=== PATIENT | male | born 1930 | race Caucasian/White ===

== ENCOUNTER 2021-06-15 23:39 | Emergency (ER) | payer OTHER, SELFPAY ==
--- OUTSIDE RECORDS SUMMARY | 2021-06-15 23:42 | XMS REPORT | Continuity of Care Document ---
:[address] [facility] t Address [address] [place] [address] Care Team Providers Name Role Phone Cristine SAMUEL, Missy Primary Care Physician CRISTINE Attending Clinician Unavailable Reyes Lucia Attending Clinician Unavailable [id number] Attending Clinician Unavailable Greg DUBOIS, S Attending Clinician LEO Attending Clinician Unavailable LEO Admitting Clinician Unavailable Reyes Lucia Admitting Clinician Unavailable [id number] Admitting Clinician Unavailable Physician, Primary or Family Admitting Clinician Unavailabl e Payers Payer Name Policy Type Policy Number Effective Date Expiration Date S ourzoraida AETM AETM [id number] Problems Condition Condition Condition Status Onset Resolution Last Treating Co mments Source Name Details Category Date Date Treatment Clinician Date NARVAEZ NARVAEZ Disease Active Univers (dyspnea (dyspnea 5-22 ity of on on 00:00: [place] exertion) exertion) [facility] Fever in Fever in Disease Active Unive rs adult adult 5-20 ity of 00:00: [address] Urinary Urinary Disease Active Univers urgency urgency 3-02 ity of 00:00: [address] Acquired Acquired Disease Active Unive rs hypothyroi hypothyroi 6-30 it y of dism dism 00:00: [address] Essential Essential Disease Active Uni vers hypertensi hypertensi 4-26 it y of on on 00:00: [place] 00 Medical Branch Benign Benign Disease Active Univers prostatic prostatic ity of hyperpl[place]plasi [place] [facility] Depression Depression Disease Active U nivers ity of [facility] Coronary Coronary Disease Active Unive rs artery artery ity of disease disease [facility] Atrial Atrial Disease Active Univers fibrillati fibrillati it y of on on [facility] Hyperchole Hyperchole Disease Active U nivers sterolemia sterolemia it y of [facility] Allergies, Adverse Reactions, Alerts Allergy Allergy Status Severity Reaction(s) Onset Inactive Treating Comm ents Source Name Type Date Date Clinician NKA Allergy Active ENCCLR 6-10 11:54: 13 NKA Allergy Active ENCCLR 6-10 11:54: 13 NKA Allergy Active ENCCLR 6-10 11:54: 13 NKA Allergy Active ENCCLR 6-10 11:54: 13 Social History Social Habit Start Date Stop Date Quantity Comments Source Exposure to Not sure [facility]-CoV-2 [facility] (event) [place] Alcohol intake 2021-04-04 2021-04-04 Current [facility] 00:00:00 00:00:00 non-drinker of [facility] alcohol [place] (finding) Tobacco use and 2017-06-30 2017-06-30 Never used Universit y of exposure 00:00:00 00:00:00 [facility] Sex Ass[birth year] Universit y of 00:00:00 00:00:00 [facility] Smoking Status Start Date Stop Date Source Never smoker [facility] Medications Ordered Filled Start Stop Current Ordering Indication Dosage Frequency Signature Comments Components Source Medication Medication Date Date Medication? Clinician (SIG) Name Name tamsulosin Yes .4mg Take 0.4 Uni vers 0.4 mg 24 2-09 mg by ity of hr capsule 08:58: mouth [place] 40 daily. Medical Branch metoprolol Yes 50mg Take 50 mg U nivers succinate 2-09 by mouth ity of XL 50 mg 24 08:58[place] tablet 40 [facility] mirabegron Yes 25mg Take 25 mg U nivers (MYRBETRIQ) 2-09 by mouth ity of 25 mg 08:58: daily. [place] tablet 40 [facility] SERTraline 2021-0 Yes 50mg Take 50 mg U nivers (ZOLOFT) 50 2-09 by mouth ity of mg tablet 08:58: daily. [address] tamsulosin 2020-0 Yes .4mg Take 0.4 Uni vers 0.4 mg 24 2-09 mg by ity of hr capsule 08:58: mouth [place] 40 daily. [facility] Branch metoprolol 2020-0 Yes 50mg Take 50 mg U nivers succinate 2-09 by mouth ity of XL 50 mg 24 08:58[place] 40 [facility] mirabegron 0 Yes 25mg Take 25 mg U nivers (MYRBETRIQ) 2-09 by mouth ity of 25 mg 08:58: daily. [address] SERTraline 0 Yes 50mg Take 50 mg U nivers (ZOLOFT) 50 2-09 by mouth ity of mg tablet 08:58: daily. [address] tamsulosin 2020-0 Yes .4mg Take 0.4 Uni vers 0.4 mg 24 2-09 mg by ity of hr capsule 08:58: mouth [place] 40 daily. [facility] metoprolol 0 Yes 50mg Take 50 mg U nivers succinate 2-09 by mouth ity of XL 50 mg 24 08:58: [place]. [place] tablet 40 [facility] mirabegron 0 Yes 25mg Take 25 mg U nivers (MYRBETRIQ) 2-09 by mouth ity of 25 mg 08:58: daily. [address] SERTraline 0 Yes 50mg Take 50 mg U nivers (ZOLOFT) 50 2-09 by mouth ity of mg tablet 08:58: daily. [address] LEVOTHYROXI 2020-0 Yes [id number] TAKE 1 Univers [place] 88 mcg 7-27 TABLET BY ity o f tablet 00:00: MOUTH [place] 00 EVERY DAY Medical IN THE [place] MORNING LEVOTHYROXI 2020-0 Yes [id number] TAKE 1 Univers [place] 88 mcg 7-27 TABLET BY ity o f tablet 00:00: MOUTH [place] 00 EVERY DAY Medical IN THE [place] MORNING LEVOTHYROXI 2020-0 Yes [id number] TAKE 1 Univers NE 88 mcg 7-27 TABLET BY ity o f tablet 00:00: MOUTH [place] 00 EVERY DAY Medical IN THE Branch MORNING MULTIVITAMI 2020-0 Yes Take by Un pham N ORAL 5-23 mouth. ity of 14:45: [place] 52 Medical Branch MULTIVITAMI 2020-0 Yes Take by Un pham N ORAL 5-23 mouth. ity of 14:45: [place] 52 Medical Branch MULTIVITAMI 2020-0 Yes Take by Un pham N ORAL 5-23 mouth. ity of 14:45: [place] 52 Medical Branch OXYBUTYNIN 2020-0 Yes [id number] TAKE 4 U nivers CHLORIDE 5 5-20 TABLETS BY ity of mg tablet 00:00: MOUTH [place] 00 TWICE A Medical DAY FOR Branch URINARY URGENCY OXYBUTYNIN 2020-0 Yes [id number] TAKE 4 U nivers CHLORIDE 5 5-20 TABLETS BY ity of mg tablet 00:00: MOUTH [place] 00 TWICE A Medical DAY FOR Branch URINARY URGENCY OXYBUTYNIN 2020-0 Yes [id number] TAKE 4 U nivers CHLORIDE 5 5-20 TABLETS BY ity of mg tablet 00:00: MOUTH [place] 00 TWICE A Medical DAY FOR Branch URINARY URGENCY losartan 2020-0 Yes [id number] 100mg Take 1 Un pham 100 mg 5-06 tablet by ity of tablet 00:00: mouth [place] 00 daily. Medical Branch losartan 2020-0 Yes [id number] 100mg Take 1 Un pham 100 mg 5-06 tablet by ity of tablet 00:00: mouth [place] 00 daily. Medical Branch losartan 2020-0 Yes [id number] 100mg Take 1 Un pham 100 mg 5-06 tablet by ity of tablet 00:00: mouth [place] 00 daily. Medical Branch hydroCHLORO 2020-0 Yes [id number] 12.5mg Take 1 Univers thiazide 4-30 tablet by ity of 12.5 mg 00:00: mouth [place] tablet 00 daily. Medical Branch hydroCHLORO 2020-0 Yes [id number] 12.5mg Take 1 Univers thiazide 4-30 tablet by ity of 12.5 mg 00:00: mouth [place] tablet 00 daily. Medical Branch hydroCHLORO 2020-0 Yes [id number] 12.5mg Take 1 Univers thiazide 4-30 tablet by ity of 12.5 mg 00:00: mouth [place] tablet 00 daily. Medical Branch AMLODIPINE 2020-0 Yes [id number] TAKE 1 U nivers 10 mg 2-12 TABLET BY ity of tablet 00:00: MOUTH [place] 00 EVERY DAY Medical Branch ATORVASTATI 2020-0 Yes [id number] TAKE 1 Univers N 10 mg 2-12 TABLET BY ity of tablet 00:00: MOUTH [place] 00 EVERYDAY Medical AT BEDTIME Branch AMLODIPINE 2020-0 Yes [id number] TAKE 1 U nivers 10 mg 2-12 TABLET BY ity of tablet 00:00: MOUTH [place] 00 EVERY DAY Medical Branch ATORVASTATI 2020-0 Yes [id number] TAKE 1 Univers N 10 mg 2-12 TABLET BY ity of tablet 00:00: MOUTH [place] 00 EVERYDAY Medical AT BEDTIME Branch AMLODIPINE 2019-0 Yes [id number] TAKE 1 U nivers 10 mg 2-12 TABLET BY ity of tablet 00:00: MOUTH [place] 00 EVERY DAY Medical Branch ATORVASTATI 2019-0 Yes [id number] TAKE 1 Univers N 10 mg 2-12 TABLET BY ity of tablet 00:00: MOUTH [place] 00 EVERYDAY Medical AT BEDTIME Branch gabapentin 2018- Yes [id number] Take one Univers 100 mg 0-11 (100 mg) ity of capsule 00:00: cap at [place] [address] bedtime. Medical May take 2 Branch caps (200 mg) up to three times a day for spasms. gabapentin 2018-05 Yes [id number] Take one Univers 100 mg 0-11 (100 mg) ity of capsule 00:00: cap at [place] [address] bedtime. Medical May take 2 Branch caps (200 mg) up to three times a day for spasms. gabapentin 2018-05 Yes [id number] Take one Univers 100 mg 0-11 (100 mg) ity of capsule 00:00: cap at [place] [address] bedtime. Medical May take 2 Branch caps (200 mg) up to three times a day for spasms. XARELTO 20 Yes [id number] TAKE 1 Univers mg tablet 6-30 TABLET BY ity o f 00:00: MOUTH [place] 00 EVERY DAY Medical Branch XARELTO 20 2018- Yes [id number] TAKE 1 Univers mg tablet 6-30 TABLET BY ity o f 00:00: MOUTH [place] 00 EVERY DAY Medical Branch XARELTO 20 2018- Yes [id number] TAKE 1 Univers mg tablet 6-30 TABLET BY ity o f 00:00: MOUTH [place] 00 EVERY DAY Medical Branch albuterol 2018- Yes [id number] 2{puff} Inhale 2 Univers 90 1-08 Puffs ity of mcg/actuati 00:00: every 6 [place] on inhaler 00 (six) Medical hours as Branch needed for Wheezing or Shortness of Breath. albuterol 2017-05 Yes [id number] 2{puff} Inhale 2 Univers 90 1-08 Puffs ity of mcg/actuati 00:00: every 6 [place] on inhaler 00 (six) Medical hours as Branch needed for Wheezing or Shortness of Breath. albuterol 2017-05 Yes [id number] 2{puff} Inhale 2 Univers 90 1-08 Puffs ity of mcg/actuati 00:00: every 6 [place] on inhaler 00 (six) Medical hours as Branch needed for Wheezing or Shortness of Breath. Immunizations Ordered Filled Immunization Date Status Comments [facility] e Immunization Name Name Influenza High Dose 2019-02-11 Completed Unive rsity of 00:00:00 [facility] Influenza High Dose 2019-02-11 Completed Unive rsity of 00:00:00 [facility] Influenza High Dose 2019-02-11 Completed Unive rsity of 00:00:00 [facility] Influenza High Dose 2018-02-16 Completed Unive rsity of 00:00:00 [facility] Influenza High Dose 2018-02-16 Completed Unive rsity of 00:00:00 [facility] Influenza High Dose 2018-02-16 Completed Unive rsity of 00:00:00 [facility] TDAP 2017-10-29 Completed University of 00:00:00 [facility] TDAP 2017-10-29 Completed University of 00:00:00 [facility] TDAP 2017-10-29 Completed University of 00:00:00 [facility] Pneumococcal 13 2017-05-14 Completed Universit y of Conjugate, PCV13 00:00:00 [facility] dical (Prevnar 13) Branch Pneumococcal 13 2017-05-14 Completed Universit y of Conjugate, PCV13 00:00:00 [facility] dical (Prevnar 13) Branch Pneumococcal 13 2017-05-14 Completed Universit y of Conjugate, PCV13 00:00:00 [facility] dical (Prevnar 13) Branch Influenza High Dose 2017-04-02 Completed Unive rsity of 00:00:00 [facility] Influenza High Dose 2017-04-02 Completed Unive rsity of 00:00:00 [facility] Influenza High Dose 2017-04-02 Completed Unive rsity of 00:00:00 [facility] Influenza High Dose 2016-03-07 Completed Unive rsity of 00:00:00 [facility] Pneumococcal 2016-03-07 Completed University o f Polysaccharide, 00:00:00 [place] Med ical PPSV23 (PNEUMOVAX) Branch Influenza High Dose 2016-03-07 Completed Unive rsity of 00:00:00 [facility] Pneumococcal 2016-03-07 Completed University o f Polysaccharide, 00:00:00 [place] Med ical PPSV23 (PNEUMOVAX) Branch Influenza High Dose 2016-03-07 Completed Unive rsity of 00:00:00 [facility] Pneumococcal 2016-03-07 Completed University o f Polysaccharide, 00:00:00 [place] Med ical PPSV23 (PNEUMOVAX) Branch Vital Signs Vital Name Observation Time Observation Value Comments Source Systolic blood 2021-04-04 15:59:00 116 [facility]Hg[facility] 2021-04-04 15:59:00 69 mm[Hg] [facility] Heart rate 2021-04-04 15:59:00 66 /min [facility] Body height 2021-04-04 15:59:00 167.6 cm [facility] Body weight 2021-04-04 15:59:00 79.289 kg [facility] BMI 2021-04-04 15:59:00 28.21 kg/m2 [facility] Oxygen saturation 2021-04-04 15:59:00 95 /min [facility] in Arterial blood [facility] by Pulse oximetry Procedures This patient has no known procedures. Encounters Start End Encounter Admission Attending Care Care Encounter Source Date/Time Date/Time Type Type Clinicians Facility Department ID 2021-05-30 Outpatient LUCY STAHL ENCCLR [id number] ENCCLR 09:56:51 ADMISSION [facility] 2021-05-30 Outpatient NEW ENCGEN ENCGEN [id number] EN CGEN 09:55:09 ADMISSION 2021-05-30 Outpatient 3 ILIR LuciaPL MARK ANTHONY [id number] ENCPL 09:52:11 Reyes 0523 2021-05-30 Outpatient 3 [id number] ENCPL REF [id number] ENCPL 09:51:42 22 2021-04-10 2021-04-10 [id number] Univers 00:00:00 00:00:00 [place] ARAUZ [id number] it y of [place] [id number] Marcel as TAWANDA?BLEA [id number] Mn justine MORENO 198 [facility] 2021-04-04 2021-04-04 [facility] [id number] Univers 09:38:57 09:53:57 Visit Campbell ARAUZ [id number] it y of [place] [id number] Marcel as TAWANDA?BLEA [id number] Mn justine MORENO 198 [facility] 2021-04-04 2021-04-04 Telephone Greg [email or web address] [id number] Univers 00:00:00 00:00:00 [place] ARAUZ [id number] it y of [place] [id number] Marcel as TAWANDA?BLEA [id number] Mn justine MORENO 198 [facility] 2019-10-02 2019-10-02 Outpatient LEO, [facility] RADI [id number] [facility] 16:34:00 16:34:00 REYES [id number] [facility] Results Test Description Test Time Test Comments Results Result [facility] e Comments - CT HEAD/BRAIN 2019-10-02 Name: SHAR SEO JR W/O CONT 18:06:00 [facility] [place] : 1930 Age/S: 89 / M [id number] [address] [employer] [place] Unit #: [id number] Loc: [place] [address] Phys: Undefined Provider Acct: [id number] Dis Date: Status: REG REF PHONE #: [phone] Exam Date: 10/02/2019 180 FAX #: Reason: FALL EXAMS: CPT: [id number] CT HEAD/BRAIN W/O CONT [id number] EXAM: CT BRAIN WITHOUT CONTRAST INDICATION: FALL COMPARISON: None available TECHNIQUE: Routine axial CT images of the brain were obtained without venous contrast. IV contrast: None DLP: 879.03 mGy-cm FINDINGS: No intra-axial or extra-axial fluid collections were identified. No acute intracranial hemorrhage. There are areas of low-attenuation within the supratentorial white matter consistent with chronic microvascular ischemic changes. There is prominence of the ventricles and sulci consistent with diffuse cerebral volume loss. No midline shift or mass effect. The basal cisterns are patent. The posterior fossa and 4th ventricle are normal. No calvarial lesions are identified. The paranasal sinuses and mastoid air cells are clear. The orbits and globes are unremarkable. IMPRESSION: No acute intracranial abnormality. No intracranial hemorrhage. Moderate chronic microvascular ischemic changes and diffuse cerebral volume loss. LOCATION: B2 This CT exam was performed according to our departmental dose optimization program, which includes automated exposure control, adjustment of the mA and or kV according to patient size and/or use of iterative reconstruction technique. at 1806 Reported and signed by: Kayce Lee M.D. PAGE 1 Signed Report (CONTINUED) Name: CLINTON LIEBERMANDEVONNATHALIEGila [facility] : 1930 Age/S: 89 / M [id number] [address] [employer] [place] Unit #: [id number] Loc: [place] [address] Phys: Undefined Provider Acct: [id number] Dis Date: Status: REG REF PHONE #: [phone] Exam Date: 10/02/20191802 FAX #: Reason: FALL EXAMS: CPT: [id number] CT HEAD/BRAIN W/O CONT [id number] <Continued> CC: Technologist:RT Antony(R)(CT); . CTDI: DLP: Trnscb Date/Time: 10/02/2019 (1805) 16 PAGE 2 Signed Report
--- NOTE | 2021-06-16 02:05 | EDPHYS ---
Physician Documentation [facility] Name: Madisyn Alonzo Age: 89 yrs Sex: Male : 1930 Arrival Date: 06/15/2021 Time: 23:43 Bed 18 Private MD: ED Physician Scotty Orourke HPI: 06/15 23:50 This 89 yrs old Male presents to ER via EMS with complaints of Fall Injury. pm1 23:50 Details of fall: The patient fell from an upright position, while standing, and struck pm1 a carpeted surface. Onset: The symptoms/episode began/occurred today. Associated injuries: The patient sustained injury to the head, abrasion, contusion, forehead. 23:50 Severity of symptoms: in the emergency department the symptoms are unchanged. The pm1 patient has not recently seen a physician. Patient was getting up from bed and he did not lock his walker's brakes. Therefore the walker slipped out from underneath him and he hit his head on the carpet. No LOC. No neck pain. - Immunization history:: Flu vaccine status is unknown. - Social history:: Smoking status: Patient denies any tobacco usage or history of. ROS: 23:50 Constitutional: Negative for fever, chills, and weight loss, Neck: Negative for injury, pm1 pain, and swelling, Cardiovascular: Negative for chest pain, palpitations, and edema, Respiratory: Negative for shortness of breath, cough, wheezing, and pleuritic chest pain, Abdomen/GI: Negative for abdominal pain, nausea, vomiting, diarrhea, and constipation, MS/Extremity: Negative for injury and deformity, Skin: Negative for injury, rash, and discoloration. 23:50 Neuro: Positive for headache, numbness, tingling, of the forehead. 23:50 All other systems are negative. Exam: 23:50 Constitutional: This is a well developed, well nourished patient who is awake, alert, pm1 and in no acute distress. 23:50 Head/face: Noted is no obvious of injury or deformity except abrasion(s), that are mild, of the forehead, contusion, that is superficial, of the forehead. 23:50 Cardiovascular: Exam negative for acute changes, Rate: normal, Rhythm: regular, Pulses: no pulse deficits are appreciated, Heart sounds: normal. 23:50 Respiratory: Exam negative for acute changes, respiratory distress, shortness of breath, Breath sounds: are clear throughout. 23:50 Skin: Appearance: normal except for affected area, injury, abrasion(s), small abrasion noted, of the forehead. 23:50 Neuro: Exam negative for acute changes, Orientation: is normal, Mentation: is normal, Motor: is normal, moves all fours. Vital Signs: 23:49 BP 142 / 64; Pulse 46; Resp 18; Temp 98.6(O); Pulse Ox 98% on R/A; sf1 06/16 01:59 BP 147 / 55; Pulse 50; Resp 18; Pulse Ox 94% on R/A; sf1 MDM: 06/15 23:48 Patient medically screened. [facility] 23:50 Data reviewed: vital signs. Data interpreted: Pulse oximetry: on room air is 98 %. pm1 Interpretation: normal. Counseling: I had a detailed discussion with the patient and/or guardian regarding: the historical points, exam findings, and any diagnostic results supporting the discharge/admit diagnosis, radiology results, the need for outpatient follow up. 06/15 23:49 Order name: CT Head Brain wo Cont pm1 Administered Medications: No medications were administered Disposition Summary: 06/16/21 02:04 Discharge Ordered Location: Home pm1 Problem: new pm1 Symptoms: have improved pm1 Condition: Stable pm1 Diagnosis - Fall on same level, unspecified pm1 - Unspecified superficial injury of other part of head, initial encounter - Forehead pm1 contusion Followup: pm1 - With: Emergency Department - When: As needed - Reason: Worsening of condition Followup: pm1 - With: Private Physician - When: 2 - 3 days - Reason: Recheck today's complaints, Continuance of care, Re-evaluation by your physician Discharge Instructions: - Discharge Summary Sheet pm1 - Head Injury, Adult pm1 - Fall Prevention in the Home, Adult pm1 Forms: - Medication Reconciliation Form pm1 - Thank You Letter pm1 - Antibiotic Education pm1 - Prescription Opioid Use pm1 Addendum: 06/17/2021 06:21 Co-signature as Attending Physician, Scotty Orourke MD I agree with the assessment and c rock plan of care. Signatures: Dispatcher [employer] EDScotty Mcdonald MD MD cha Marinas, Patrick, NP PHARMACY AFFAIRS ASSISTANT pm1 Brittany, Raina, RN RN sf1
--- NOTE | 2021-06-16 02:05 | ER ---
Nurse's Notes [facility] Name: Madisyn Alonzo Age: 89 yrs Sex: Male : 1930 Arrival Date: 06/15/2021 Time: 23:43 Bed 18 Private MD: Diagnosis: Fall on same level, unspecified;Unspecified superficial injury of other part of head, initial encounter-Forehead contusion Presentation: 06/15 23:49 Chief complaint: EMS states: fell and hit head a facility, not on blood thinners, did sf1 not loc. Coronavirus screen: Client denies travel out of the [place] in the last 14 days. Ebola Screen: Patient negative for fever greater than or equal to 101.5 degrees Fahrenheit, and additional compatible Ebola Virus Disease symptoms Patient denies exposure to infectious person. Patient denies travel to an Ebola-affected area in the 21 days before illness onset. Initial Sepsis Screen: Does the patient meet any 2 criteria? No. Patient's initial sepsis screen is negative. Does the patient have a suspected source of infection? No. Patient's initial sepsis screen is negative. Risk Assessment: Do you want to hurt yourself or someone else? Patient reports no desire to harm self or others. Onset of symptoms was June 15, 2021. 23:49 Method Of Arrival: EMS sf1 23:49 Acuity: MARION 4 sf1 Triage Assessment: 23:49 General: Appears in no apparent distress. Behavior is calm. Pain: Complains of pain in sf1 top of head. - Immunization history:: Flu vaccine status is unknown. - Social history:: Smoking status: Patient denies any tobacco usage or history of. Screenin:52 Abuse screen: Denies threats or abuse. Nutritional screening: No deficits noted. sf1 Tuberculosis screening: No symptoms or risk factors identified. Fall Risk Fall in past 12 months (25 points). No secondary diagnosis (0 pts). No IV (0 pts). Ambulatory Aid- None/Bed Rest/Nurse Assist (0 pts). Gait- Weak (10 pts.). Mental Status- Oriented to own ability (0 pts). Assessment: 23:52 General: Appears in no apparent distress. Injury Description: Abrasion sustained to top sf1 of head. Vital Signs: 23:49 BP 142 / 64; Pulse 46; Resp 18; Temp 98.6(O); Pulse Ox 98% on R/A; sf1 06/16 01:59 BP 147 / 55; Pulse 50; Resp 18; Pulse Ox 94% on R/A; sf1 ED Course: 06/15 23:43 Patient arrived in ED. 23:45 Sriram Shields NP is PHCP. pm1 23:45 Scotty Orourke MD is Attending Physician. pm1 23:49 Raina Soto RN is Primary Nurse. sf1 23:49 Arm band placed on right wrist. sf1 23:51 Triage completed. sf1 23:52 Bed in low position. Call light in reach. Side rails up X2. sf1 23:52 No provider procedures requiring assistance completed. sf1 06/16 00:54 CT Head Brain wo Cont In Process Unspecified. EDMS Administered Medications: No medications were administered Outcome: 02:04 Discharge ordered by . pm1 03:06 Patient left the ED. sf1 Signatures: Dispatcher [employer] EDMS Sriram Shields NP RESTAURANT AND BAR MANAGER pm1 Yisel Zuluaga Raina Soto RN RN sf1
[2021-06-16 03:10] VITALS: TEMP 98.6
[2021-06-16 03:11] VITALS: BP 147/55; O2SAT 94
--- NOTE | 2021-06-17 17:43 | RAD REPORT ---
EXAM DESCRIPTION: CT - Head Brain Wo Cont - 06/16/2021 8:33 am CLINICAL HISTORY: The patient is 89 years old and is Male; Fall injury, contusion left side of foreh ead TECHNIQUE: Axial computed tomography images of the head/brain without intravenous contrast. Sagitt al and coronal reformatted images were created and reviewed. This CT exam was performed using one o r more of the following dose reduction techniques: automated exposure control, adjustment of the mA and/or kV according to patient size, and/or use of iterative reconstruction technique. COMPARISON: No relevant prior studies available. FINDINGS: Brain: Mild cerebral atrophy. Mild nonspecific white matter changes likely related to chronic microvascular ischemic diseas e. No hemorrhage. Ventricles: Unremarkable. No ventriculomegaly. Bones/joints: Unremarkable. No acute fracture. Soft tissues: Unremarkable. Sinuses: Unremarkable as visualized. Mastoid air cells: Unremarkable as visualized. No mastoid effusion. IMPRESSION: No acute intracranial abnormality. Electronically signed by: Eulogio Rizvi MD 06/16/2021 1:28 AM [employer] Due to temporary technical issues with the PACS/Fluency reporting system, reports are being signed by the in house radiologists without review as a courtesy to insure prompt reporting. The interpreting radiologist is fully responsible for the content of the report.
== END 2021-06-16 03:06 | disposition home or self-care (01) ==
LOC: ER 23:39
DX: S00.83XA Contusion of other part of head, initial encounter (principal); W18.30XA Fall on same level, unspecified, initial encounter
CPT/HCPCS: 70450; 99283